=== PATIENT | male | born 1990 | race Caucasian/White ===

== ENCOUNTER 2022-05-28 10:22 | Emergency (ER) | payer MEDICAID ==
[~2022-05-28] VITALS: Ht 185.4 cm; Wt 109.1 kg
[2022-05-28 10:30] VITALS: BP 125/92
[2022-05-28] MEDS ORDERED: TRAM50TA2 PO (14:27)
[2022-05-28] MEDS ORDERED: CYCL-1 PO (14:27)
== END 2022-05-28 14:41 | disposition home or self-care (01) ==
LOC: ER 10:24
DX: S32.010A Wedge compression fracture of first lumbar vertebra, initial encounter for closed fracture (principal); W18.39XA Other fall on same level, initial encounter; Y93.89 Activity, other specified; Y92.89 Other specified places as the place of occurrence of the external cause; Y99.8 Other external cause status; Z87.81 Personal history of (healed) traumatic fracture
CPT/HCPCS: 72131; 99284